=== PATIENT | female | born 1990 | race American Indian/Alaskan Native ===

== ENCOUNTER 2020-08-30 02:54 | Emergency (ER) | payer BC ==
[2020-08-30] MEDS ORDERED: LIDOCAINE VISCOUS 2% 15 ML ORAL LIQD PO ONE (03:40)
[2020-08-30] MEDS ORDERED: ALUM-MAG HYDROXIDE-SIMETHICONE 200-200-20MG/5ML ORAL LIQD 30 ML PO ONE (03:40)
--- NOTE | 2020-08-30 03:55 | Event Note ---
ED Screening Note Date of service: 08/30/20 Time: 04:17 ED Screening Note: pt presents for bilat lower abd pain 6/10 sharp, x 3 days , pain is exacerbated by movement it in bad LMP 1 month ago, This initial assessment/diagnostic orders/clinical plan/treatment(s) is/are subject to change based on patients health status, clinical progression and re- assessment by fellow clinical providers in the ED. Further treatment and workup at subsequent clinical providers discretion. Patient/guardian urged not to elope from the ED as their condition may be serious if not clinically assessed and managed. Initial orders include: cmp, cbc, ua, hcg
[2020-08-30 04:38] LABS: Hematocrit 38.3 % (30.3-42.9); Hemoglobin 12.5 gm/dl (10.1-14.3); Mean Corpuscular HGB Conc 33 % (30-34); Mean Corpuscular Volume 80 fl (79-97); Platelet Count 220 K/mm3 (140-440); Red Blood Count 4.78 M/mm3 (3.65-5.03); Red Cell Distribution Width 14.6 % (13.2-15.2)
[2020-08-30 04:58] LABS: Alanine Aminotransferase 24 units/L (7-56); Albumin 4.5 g/dL (3.9-5); Blood Urea Nitrogen 9 mg/dL (7-17); Calcium 9.3 mg/dL (8.4-10.2); Hemolysis Index 3
[2020-08-30 04:59] LABS: BUN/Creatinine Ratio 13
[2020-08-30 05:24] LABS: Basophils # (Auto) 0.1 K/mm3 (0.0-0.1); Eosinophils % (Auto) 0.1 % (0.0-4.3); Monocytes # (Auto) 0.2 K/mm3 (0.0-0.8); Monocytes % (Auto) 1.6 % (0.0-7.3)
[2020-08-30 06:02] LABS: Large Platelets Few; Platelet Estimate Consistent w Auto; RBC Morphology Normal; Total Cells Counted 100
--- NOTE | 2020-08-30 06:27 | Emergency Department Report ---
ED General Adult HPI - General Chief complaint: Abdominal Pain Stated complaint: belly pain PUI?: No Time Seen by Provider: 08/30/20 06:06 Source: patient, RN notes reviewed Mode of arrival: Ambulatory Limitations: No Limitations - History of Present Illness Initial comments: The patient was evaluated in the emergency department for symptoms described in the history of present illness. He/she was evaluated in the context of the global COVID-19 pandemic, which necessitated consideration that the patient might be at risk for infection with the virus that causes COVID-19. Institutional protocols and algorithms that pertain to the evaluation of patients at risk for COVID-19 are in a state of rapid change based on informati on released by regulatory bodies including the CDC and federal and state organizations. These policies and algorithms were followed during the patient's care in the emergency department. Please note that these policies, procedures and recommendations changed on a rapid basis. During the history and physical examination, I am chaperoned by nurse MEKA WILSON The patient is a 29-year-old female. She is not known to myself previously. Her primary care doctor is Dr. Marquez she reports that she is not , and reports that she is currently menstruating. She has no chronic medical conditions, and no surgical history. The patient presents to the ER today with a complaint of diffuse abdominal pain. It occasionally radiates up to the chest. The abdominal pain is sharp. She is never had pain like this before. She denies fever headache, neck pain, exertional shortness of breath, she vomited x1 Or 2, denies diaphoresis, has no dysuria, denies travel, surgery, DVT, pulmonary embolism risk factors, and she denies personal/family history of DVT, pulmonary embolism, coronary artery disease Her main complaint is diffuse abdominal pain. The patient does admit to central chest wall pain, which does not radiate to the back, arms or neck. -: hour(s) (Symptoms started approximately 7 hours ago) Location: abdomen Radiation: abdomen, other (Chest) Severity scale (0 -10): 10 Quality: aching Consistency: constant Improves with: medication, rest Worsens with: movement - Related Data Previous Rx's Medication Instructions Recorded Last Taken Type Acetaminophen [Non-Aspirin Extra 500 mg PO Q6HR PRN #30 tablet 08/30/20 Unknown Rx Strength] Famotidine [Pepcid] 20 mg PO BID #20 tablet 08/30/20 Unknown Rx Ketorolac [Toradol] 10 mg PO Q6H PRN #20 tablet 08/30/20 Unknown Rx Ondansetron [Zofran Odt] 4 mg PO Q8HR PRN #20 tab.rapdis 08/30/20 Unknown Rx Allergies Allergy/AdvReac Type Severity Reaction Status Date / Time No Known Allergies Allergy Unverified 08/30/20 03:44 ED Review of Systems ROS: Stated complaint: ABDOMINAL PAIN/SOB Other details as noted in HPI Constitutional: other (Denies loss of taste and loss of smell). denies: fever Eyes: denies: eye discharge ENT: denies: epistaxis Respiratory: denies: cough, shortness of breath Cardiovascular: chest pain Gastrointestinal: abdominal pain, nausea, vomiting Genitourinary: denies: dysuria Musculoskeletal: denies: myalgia Neurological: weakness Hematological/Lymphatic: denies: easy bleeding ED Past Medical Hx - Past Medical History Previous Medical History?: No - Surgical History Past Surgical History?: No - Social History Smoking Status: Never Smoker Substance Use Type: None - Medications Home Medications: Home Medications Medication Instructions Recorded Confirmed Last Taken Type Acetaminophen [Non-Aspirin Extra 500 mg PO Q6HR PRN #30 tablet 08/30/20 Unknown Rx Strength] Famotidine [Pepcid] 20 mg PO BID #20 tablet 08/30/20 Unknown Rx Ketorolac [Toradol] 10 mg PO Q6H PRN #20 tablet 08/30/20 Unknown Rx Ondansetron [Zofran Odt] 4 mg PO Q8HR PRN #20 tab.rapdis 08/30/20 Unknown Rx ED Physical Exam - General Limitations: No Limitations General appearance: alert, in no apparent distress - Head Head exam: Present: atraumatic, normocephalic - Eye Eye exam: Present: normal appearance, EOMI. Absent: nystagmus - ENT ENT exam: Present: normal exam, normal orophraynx, mucous membranes moist, normal external ear exam - Neck Neck exam: Present: normal inspection, full ROM. Absent: tenderness, meningismus - Respiratory Respiratory exam: Present: normal lung sounds bilaterally, chest wall tenderness. Absent: respiratory distress, wheezes, rales, rhonchi, stridor - Cardiovascular Cardiovascular Exam: Present: regular rate, normal rhythm, normal heart sounds. Absent: bradycardia, tachycardia, irregular rhythm, systolic murmur, diastolic murmur, rubs, gallop - GI/Abdominal GI/Abdominal exam: Present: soft, tenderness, guarding. Absent: distended, rebound, rigid, pulsatile mass - External exam: Present: normal external exam, bleeding Speculum exam: Present: vaginal bleeding. Absent: erythema, vaginal discharge, cervical discharge, tissue, laceration Bi-manual exam: Present: normal bi-manual exam. Absent: cervical motion tendernes, adnexal tenderness, adnexal mass, uterine enlargement, uterine tenderness - Extremities Exam Extremities exam: Present: normal inspection, full ROM, other (2+ pulses noted in the bilateral upper and lower extremities. There is no palpable cord. negative Homans sign. Muscular compartments are soft. The pelvis is stable.). Absent: pedal edema, calf tenderness - Back Exam Back exam: Present: normal inspection, full ROM. Absent: tenderness, CVA tenderness (R), CVA tenderness (L), paraspinal tenderness, vertebral tenderness - Neurological Exam Neurological exam: Present: alert, other (No facial droop. Tongue midline. Extraocular movements intact bilaterally. Facial sensation intact to light touch in V1, V2, V3 distribution bilaterally. 5 and a 5 strength in 4 extremities. Sensation intact to light touch in 4 extremities.). Absent: motor sensory deficit - Psychiatric Psychiatric exam: Present: anxious - Skin Skin exam: Present: warm, dry, intact, normal color. Absent: rash ED Course Vital Signs 08/30/20 08/30/20 08/30/20 03:27 05:54 05:58 Temperature 97.7 F 98.8 F Pulse Rate 98 H 95 H Respiratory 18 17 Rate Blood Pressure 103/43 Blood Pressure 97/49 [Right] O2 Sat by Pulse 100 100 100 Oximetry 08/30/20 08/30/20 08/30/20 06:01 06:02 06:15 Temperature Pulse Rate 92 H 103 H Respiratory 13 17 14 Rate Blood Pressure 97/49 97/49 Blood Pressure [Right] O2 Sat by Pulse 100 100 100 Oximetry 08/30/20 08/30/20 08/30/20 06:31 06:35 06:45 Temperature Pulse Rate 95 H 94 H Respiratory 20 22 Rate Blood Pressure 99/55 112/61 Blood Pressure 98/60 [Right] O2 Sat by Pulse Oximetry 08/30/20 07:01 Temperature Pulse Rate 93 H Respiratory 15 Rate Blood Pressure 112/61 Blood Pressure [Right] O2 Sat by Pulse Oximetry - Reevaluation(s) Reevaluation #1: 08/30/20 06:53 Differential diagnosis, including but not limited to: Colitis, diverticulitis, appendicitis, perforated viscus, urinary tract infection, renal colic, pelvic inflammatory disease, pneumonia, costochondritis, GERD, gastritis, hiatal hernia Assessment and plan: 29-year-old female, with a primary complaint of diffuse abdominal pain. Urinalysis, test pending. Treat patient's pain. EKG unremarkable. Obtain CT scan of the abdomen pelvis, and pelvic ultrasound. Perform pelvic examination once pain better controlled. From a chest pain risk ratification perspective: Who is not currently tachycardic, tachypneic or hypoxic, who denies DVT and pulmonary embolism risk factors, who is low risk by Wells criteria for pulmonary embolism, PERC negative EKG unremarkable, troponin negative x 1, symptoms present for 7 hours. Patient has equal pulses in the upper and lower extremities, no pulsatile abdominal mass, and an unremarkable x-ray of the chest, therefore, aortic disease is very unlikely. Patient at low risk for major adverse cardiac event as per heart score. Given reproducibility, history and physical, do not have a high suspicion for GERD, gastritis, hiatal hernia at this time. Pneumonia is unlikely given history, physical, and x-ray findings. I find coronary artery disease of significance to be unlikely. Reassess after initial data points. Have discussed this plan of care with the patient, who verbalized understanding, and is amenable to this plan of care. 08/30/20 10:21 The patient is reassessed. CT scan abdomen pelvis demonstrates fibroids, pelvic ultrasound demonstrates fibroids, no evidence of torsion, no evidence of acute surgical process. Gynecologic examination benign. Urinalysis not suggestive of urinary tract infection. Patient reports marked improvement in her symptoms after Toradol. Patient suitable for discharge at this time with outpatient follow-up. She endorses marked improvement in her symptoms. This is most likely dysmenorrhea with probable fibroids. ED Medical Decision Making - Lab Data Result diagrams: 08/30/20 03:50 08/30/20 03:50 Vital Signs - 24 hr 08/30/20 08/30/20 08/30/20 03:27 05:54 05:58 Temperature 97.7 F 98.8 F Pulse Rate 98 H 95 H Respiratory 18 17 Rate Blood Pressure 103/43 Blood Pressure 97/49 [Right] O2 Sat by Pulse 100 100 100 Oximetry 08/30/20 08/30/20 08/30/20 06:01 06:02 06:15 Temperature Pulse Rate 92 H 103 H Respiratory 13 17 14 Rate Blood Pressure 97/49 97/49 Blood Pressure [Right] O2 Sat by Pulse 100 100 100 Oximetry 08/30/20 08/30/20 08/30/20 06:31 06:35 06:45 Temperature Pulse Rate 95 H 94 H Respiratory 20 22 Rate Blood Pressure 99/55 112/61 Blood Pressure 98/60 [Right] O2 Sat by Pulse Oximetry Lab Results 08/30/20 08/30/20 Range/Units 03:50 03:50 WBC 12.2 H (4.5-11.0) K/mm3 RBC 4.78 (3.65-5.03) M/mm3 Hgb 12.5 (10.1-14.3) gm/dl Hct 38.3 (30.3-42.9) % MCV 80 (79-97) fl MCH 26 L (28-32) pg MCHC 33 (30-34) % RDW 14.6 (13.2-15.2) % Plt Count 220 (140-440) K/mm3 Mcintosh % (Auto) 1.6 (0.0-7.3) % Eos % (Auto) 0.1 (0.0-4.3) % Mcintosh # (Auto) 0.2 (0.0-0.8) K/mm3 Eos # (Auto) 0.0 (0.0-0.4) K/mm3 Baso # (Auto) 0.1 (0.0-0.1) K/mm3 Add Manual Diff Complete Total Counted 100 Seg Neutrophils % Credit Historian Seg Neuts % (Manual) 90.0 H (40.0-70.0) % Lymphocytes % (Manual) 7.0 L (13.4-35.0) % Monocytes % (Manual) 3.0 (0.0-7.3) % Nucleated RBC % Not Reportable Seg Neutrophils # 10.8 H (1.8-7.7) K/mm3 Seg Neutrophils # Man 11.0 H (1.8-7.7) K/mm3 Band Neutrophils # 0.0 K/mm3 Lymphocytes # (Manual) 0.9 L (1.2-5.4) K/mm3 Abs React Lymphs (Man) 0.0 K/mm3 Monocytes # (Manual) 0.4 (0.0-0.8) K/mm3 Eosinophils # (Manual) 0.0 (0.0-0.4) K/mm3 Basophils # (Manual) 0.0 (0.0-0.1) K/mm3 Metamyelocytes # 0.0 K/mm3 Myelocytes # 0.0 K/mm3 Promyelocytes # 0.0 K/mm3 Blast Cells # 0.0 K/mm3 WBC Morphology Not Reportable Hypersegmented Neuts Not Reportable Hyposegmented Neuts Not Reportable Hypogranular Neuts Not Reportable Smudge Cells Not Reportable Toxic Granulation Not Reportable Toxic Vacuolation Not Reportable Dohle Bodies Not Reportable Pelger-Huet Anomaly Not Reportable Rolando Rods Not Reportable Platelet Estimate Consistent w auto Clumped Platelets Not Reportable Plt Clumps, EDTA Not Reportable Large Platelets Few Giant Platelets Not Reportable Platelet Satelliting Not Reportable Plt Morphology Comment Not Reportable RBC Morphology Normal Dimorphic RBCs Not Reportable Polychromasia Not Reportable Hypochromasia Not Reportable Poikilocytosis Not Reportable Anisocytosis Not Reportable Microcytosis Not Reportable Macrocytosis Not Reportable Spherocytes Not Reportable Pappenheimer Bodies Not Reportable Sickle Cells Not Reportable Target Cells Not Reportable Tear Drop Cells Not Reportable Ovalocytes Not Reportable Helmet Cells Not Reportable [employer] Bodies Not Reportable [place] Rings Not Reportable Strum Cells Not Reportable Bite Cells Not Reportable Crenated Cell Not Reportable Elliptocytes Not Reportable Acanthocytes (Spur) Not Reportable Rouleaux Not Reportable Hemoglobin C Crystals Not Reportable Schistocytes Not Reportable Malaria parasites Not Reportable Justen Bodies Not Reportable Hem Pathologist Commnt No Sodium 138 (137-145) mmol/L Potassium 3.7 (3.6-5.0) mmol/L Chloride 104.2 (98-107) mmol/L Carbon Dioxide 25 (22-30) mmol/L Anion Gap 13 mmol/L BUN 9 (7-17) mg/dL Creatinine 0.7 (0.6-1.2) mg/dL Estimated GFR > 60 ml/min BUN/Creatinine Ratio 13 % Glucose 98 (65-100) mg/dL Calcium 9.3 (8.4-10.2) mg/dL Total Bilirubin 0.40 (0.1-1.2) mg/dL AST 18 (5-40) units/L ALT 24 (7-56) units/L Alkaline Phosphatase 42 (35-129) units/L Total Protein 6.8 (6.3-8.2) g/dL Albumin 4.5 (3.9-5) g/dL Albumin/Globulin Ratio 2.0 % Lipase 14 (13-60) units/L - EKG Data -: EKG Interpreted by Me EKG shows normal: sinus rhythm Rate: normal - EKG Data When compared to previous EKG there are: previous EKG unavailable 08/30/20 06:55 This is a sinus rhythm, 94 bpm. Normal axis, normal intervals, borderline atrial enlargement, high left ventricular voltage. Abnormal EKG. Not a STEMI. No prior for comparison - Radiology Data Radiology results: pending, report reviewed, image reviewed interpreted by me: 1 view x-ray of the chest, interpreted by myself, clear lungs, no pneumothorax, no infiltrates, unremarkable osseous anatomy. CT abdomen pelvis w con INDICATION: acute diffuse abd pain. COMPARISON: Ultr asound pelvis same day TECHNIQUE: Abdominal and pelvic CT exam performed. All CT scans at this location are performed using CT dose reduction for ALARA by means of automated exposure control. FINDINGS: CT ABDOMEN and PELVIS: Lung Bases: No significant abnormality. Liver: No significant abnormality. Biliary: No significant abnormality. Spleen: No significant abnormality. Pancreas: No significant abnormality. Adrenals: No significant abnormality. Kidneys: No significant abnormality. Lymphatics: No lymphadenopathy. Vasculature: No significant abnormality. Bowel: No significant abnormality. Normal appendix. Pelvis: There are a few heterogenous lesions in the uterine fundus and left uterine body which are likely fibroids measuring up to 2.5cm. Osseous Structures: No aggressive osseous lesion. Additional Findings: None IMPRESSION: 1. No acute abnormality of the abdomen or pelvis. 2. Uterine lesions most consistent with fibroids. Signer Name: John Moore MD Signed: 08/30/2020 7:57 AM Workstation Name: [id number] US pelvis duplex doppler comp, US transvaginal INDICATION / CLINICAL INFORM ATION: lower abd pain pelvic pain. TECHNIQUE: Transabdominal. Duplex Color Doppler used: Yes. COMPARISON: None available FINDINGS: UTERUS: Measures 7.7 x 3.8 x 5.9 cm. -Endometrial stripe measures 0.5 cm. - Mass lesions: There are heterogeneous lesions in the uterus measuring 2.5 cm in the fundus, 2.2 cm in the posterior uterine body, and 0.8 cm also in the anterior fundus. Multiple echogenic focus seen within the lower uterine segment is most certainly benign in etiology. RIGHT ADNEXA: No significant ovarian cyst or mass. Normal color Doppler blood flow. LEFT ADNEXA: No significant ovarian cyst or mass. Normal color Doppler blood flow. URINARY BLADDER: No significant abnormality. FREE FLUID: None. ADDITIONAL FINDINGS: None. IMPRESSION: 1. There are a few lesions seen in the uterus most consistent with fibroids measuring up to 2.5 cm. Otherwise, no significant abnormality. Signer Name: John Moore MD Signed: 08/30/2020 7:30 AM Workstation Name: [id number] Critical care attestation.: If time is entered above; I have spent that time in minutes in the direct care of this critically ill patient, excluding procedure time. ED Disposition Clinical Impression: Chest wall pain, Acute abdominal pain, Fibroids Disposition: - TO HOME OR SELFCARE Is pt being admited?: No Does the pt Need Aspirin: No Condition: Good Instructions: Abdominal Pain (ED), Chest Pain (ED), Chest Wall Pain, [id number], Uterine Fibroids Additional Instructions: Do not take metformin medication for the next 2 days, if patient takes this medication. Patient most likely experiencing dysmenorrhea/painful menstruation, associated with uterine fibroids. Cultures were sent today, and results will be available in the next 3 to 5 days. Please have a primary care doctor or video control engineer contact the medical records department to obtain culture results. Please follow-up with your primary care doctor or video control engineer within the next 5 days for repeat checkup and evaluation. Please return to the emergency room right away with new pain, worsened pain, migration of pain, projectile vomiting, change in mental status, confusion, inability tolerate liquid feeds, new, worsened or different symptoms not present on the initial emergency room evaluation. X-ray of the chest was interpreted by the ER physician as being negative for acute findings. A formal radiology interpretation will be rendered within the next 12 to 24 hours. Occasionally, final x-ray interpretations are different from initial ER x-ray interpretations. Therefore, please have your primary care doctor contact the medical records department to follow-up on x-ray read/results, and follow-up on any possible discrepancies. Referrals: [facility] [Provider Group] - 3-5 Days [facility] [Provider Group] - 3-5 Days Forms: Work/School Release Form(ED) Heart Score - HEART Score History: Slightly suspicious EKG: Non-specific Age: < 45 Risk factors: No known risk factors Troponin: < normal limit HEART Score: 1 - Critical Actions Critical Actions: 0-3 pts:0.9-1.7%risk of adverse cardiac event.Candidate for discharge
[2020-08-30] MEDS ORDERED: ONDANSETRON 4 MG/2 ML INJ IV ONE (06:46)
[2020-08-30] MEDS ORDERED: MORPHINE 4 MG/1 ML INJ IV ONE ×2 (06:46→08:45)
[2020-08-30] MEDS ORDERED: SODIUM CHLORIDE 0.9% 1000 ML 1,000 ML IV ONE (06:46)
[2020-08-30 08:11] LABS: INR 0.97 (0.87-1.13)
--- NOTE | 2020-08-30 08:35 | Ultrasound Report ---
US pelvis duplex doppler comp, US transvaginal INDICATION / CLINICAL INFORMATION: lower abd pain pelvic pain. TECHNIQUE: Transabdominal. Duplex Color Doppler used: Yes. COMPARISON: None available FINDINGS: UTERUS: Measures 7.7 x 3.8 x 5.9 cm. -Endometrial stripe measures 0.5 cm. - Mass lesions: There are heterogeneous lesions in the uterus measuring 2.5 cm in the fundus, 2.2 cm in the posterior uterine body, and 0.8 cm also in the anterior fundus. Multiple echogenic focus seen within the lower uterine segment is most certainly benign in etiology. RIGHT ADNEXA: No significant ovarian cyst or mass. Normal color Doppler blood flow. LEFT ADNEXA: No significant ovarian cyst or mass. Normal color Doppler blood flow. URINARY BLADDER: No significant abnormality. FREE FLUID: None. ADDITIONAL FINDINGS: None. IMPRESSION: 1. There are a few lesions seen in the uterus most consistent with fibroids measuring up to 2.5 cm. O therwise, no significant abnormality. Signer Name: John Moore MD Signed: 08/30/2020 8:30 AM Workstation Name: [id number]
--- NOTE | 2020-08-30 09:01 | Cat Scan Report ---
CT abdomen pelvis w con INDICATION: acute diffuse abd pain. COMPARISON: Ultrasound pelvis same day TECHNIQUE: Abdominal and pelvic CT exam performed. All CT scan s at this location are performed using CT dose reduction for ALARA by means of automated exposure con trol. FINDINGS: CT ABDOMEN and PELVIS: Lung Bases: No significant abnormality. Liver: No significant abnormality. Biliary: No significant abnormality. Spleen: No significant abnormality. Pancreas: No significant abnormality. Adrenals: No significant abnormality. Kidneys: No significant abnormality. Lymphatics: No lymphadenopathy. Vasculature: No significant abnormality. Bowel: No significant abnormality. Normal appendix. Pelvis: There are a few heterogenous lesions in the uterine fundus and left uterine body which are li carla fibroids measuring up to 2.5cm. Osseous Structures: No aggressive osseous lesion. Additional Findings: None IMPRESSION: 1. No acute abnormality of the abdomen or pelvis. 2. Uterine lesions most consistent with fibroids. Signer Name: John Moore MD Signed: 08/30/2020 8:57 AM Workstation Name: [id number]
[2020-08-30] MEDS ORDERED: KETOROLAC 30 MG/1 ML INJ IV ONE (09:20)
[2020-08-30 10:04] LABS: Bilirubin,Urine NEG (Negative); Blood,Urine NEG (Negative); Color,Urine Yellow (Yellow); Mucus,Urine FEW /HPF; Protein,Urine <15 mg/dL mg/dL (Negative); Urobilinogen,Urine < 2.0 mg/dL (<2.0)
[2020-08-30 10:18] LABS: HCG Qualitative,Urine Negative (Negative)
--- NOTE | 2020-08-30 10:24 | XRay Report ---
CHEST 1 VIEW INDICATION / CLINICAL INFORMATION: acute chest pain. COMPARISON: None available. FINDINGS: SUPPORT DEVICES: None. HEART / MEDIASTINUM: No significant abnormality. LUNGS / PLEURA: No significant pulmonary or pleural abnormality. No pneumothorax. ADDITIONAL FINDINGS: No significant additional findings. IMPRESSION: No acute pulmonary or pleural abnormality Signer Name: Ray Alexander MD FACR Signed: 08/30/2020 10:19 AM Workstation Name: [id number]
[2020-08-30 10:50] VITALS: BP 108/60
== END 2020-08-30 10:49 | disposition home or self-care (01) ==
LOC: ED 02:54
DX: R07.89 Other chest pain (principal); R10.84 Generalized abdominal pain; M54.2 Cervicalgia; Z79.899 Other long term (current) drug therapy; D21.9 Benign neoplasm of connective and other soft tissue, unspecified
CPT/HCPCS: 36415; 71045; 74177; 76830; 80053; 81001; 81025; 82550; 83690; 83735; 84484; 84703; 85007; 85025; 85610; 87210; 87591; 93005; 93975; 96361; 96374; 96375; 96376; 99285; J1885; J2270; J2405; J7030; Q9967